=== PATIENT | male | born 1965 | race Caucasian/White ===

== ENCOUNTER 2018-01-23 13:10 | Emergency (ER) | payer OTHER ==
[~2018-01-23] VITALS: Ht 180.3 cm; Wt 140.0 kg
[2018-01-23 13:10] VITALS: BP 158/82; TEMP 98.2; O2SAT 96
[~2018-01-23 13:10] MED LIST: LORT5TAB PO; Z.0.NO CURRENT MEDS
--- NOTE | 2018-01-23 17:15 | PD ---
HPI . Bleeding Chief Complaint: Skin Problem Time Seen by Provider: 15:41 Travel History International Travel<30 days: No Contact w/Intl Traveler<30days: No Traveled to known affect area: No History of Present Illness HPI Patient presents with a bleeding varicose vein. He inadvertently struck his leg on the propeller of a boat. He was unable to stop the bleeding and eventually presented to us. PFSH Past Medical History Cardiovascular Problems: Yes Congestive Heart Failure: Yes Hypertension: Yes Neurologic: Yes (BACK PROBLEMS LOWER, CHRONIC X 5 YEARS OR MORE) Influenza Vaccination: No Past Surgical History Surgical History: No Previous Surgery Social History Alcohol Use: Yes Tobacco Use: Yes (2 PACKS A WEEK) Substance Use: No Allergies-Medications (Allergen,Severity, Reaction): Coded Allergies: No Known Allergies (Verified , 11/10/12) Reported Meds & Prescriptions Reported Meds & Active Scripts Active Lortab 5/500 (Acetaminophen/Hydrocodone Bitart) 5 Mg/500 Mg Tab 1-2 Tab PO QIDPRN Reported No Current Meds (Miscellaneous Medication) Misc Review of Systems Except as stated in HPI: all other systems reviewed are Neg Physical Exam Narrative GENERAL: Awake and alert and in no acute distress. SKIN: Warm and dry. He has a bleeding varicosity on the right lower extremity. Bleeding could not be controlled with direct pressure. HEAD: Normocephalic/atraumatic. EYES: Pupils are equal. Extraocular movements are intact. NECK: Normal range of motion. RESPIRATORY: Nonlabored respirations. MUSCULOSKELETAL: Atraumatic. NEUROLOGICAL: Nonfocal. PSYCHIATRIC: Appropriate mood and affect. Data Data Last Documented VS Vital Signs Date Time Temp Pulse Resp B/P (MAP) Pulse Ox O2 Delivery O2 Flow Rate FiO2 01/23/18 13:10 98.2 71 16 158/82 (107) 96 MDM Medical Decision Making Medical Screen Exam Complete: Yes Emergency Medical Condition: Yes Differential Diagnosis Differential diagnosis includes but is not limited to skin laceration, muscular laceration, tendon laceration, neurovascular laceration. Narrative Course This patient presents with a bleeding varicosity on the right lower leg. He inadvertently struck his leg on the propeller of a boat which caused the bleeding. He was unable to control the bleeding and subsequently presented here. I attempted to control the bleeding with direct pressure. This was not successful. Procedures Procedure Narrative LACERATION LOCATION: Right lower extremity LENGTH: < 1 cm NUMBER OF STITCHES/BERNABE: 1 REPAIR: The wound was closed using 3-0 Ethilon. This was a single layer repair. A sterile dressing was applied. The patient was advised to keep the dressing clean and dry. Patient tolerated the procedure well. Diagnosis Primary Impression: Bleeding from varicose vein Patient Instructions: General Instructions Disposition: 01 DISCHARGE HOME Condition: Stable Ira Babin MD Jan 23, 2018 17:15
== END 2018-01-23 17:23 | disposition home or self-care (01) ==
LOC: NEPD 13:10
DX: I83.891 Varicose veins of right lower extremity with other complications (principal); F17.200 Nicotine dependence, unspecified, uncomplicated
CPT/HCPCS: 12001